=== PATIENT | female | born 1960 | race Caucasian/White ===

== ENCOUNTER 2017-10-04 23:21 | Emergency (ER) | payer BC ==
[2017-10-04] MEDS ORDERED: Ketorolac 60 MG/2 ML SDV IM ONE (23:37)
--- NOTE | 2017-10-04 23:43 | EDM.PDOC ---
ED HPI GENERAL MEDICAL PROBLEM - General Chief Complaint: Back Pain or Injury Stated Complaint: BACK AND HIP PAIN Time Seen by Provider: 10/04/17 23:25 Source of Information: Reports: Patient, Old Records History Limitations: Reports: No Limitations - History of Present Illness INITIAL COMMENTS - FREE TEXT/NARRATIVE: Xin comes to [facility] for pain management of chronic sacroiliitis and degenerative back disease. She has received steroid injections at the [facility], and next scheduled visit is October 25. She has Tramadol at home for pain, with musculoskeletal relaxants. She requests treatment and a note for employer. She is in recovery of chronic ETOH x 2 years. - Related Data Allergies Allergy/AdvReac Type Severity Reaction Status Date / Time codeine Allergy Nausea and Verified 07/26/15 19:18 Vomiting Penicillins Allergy Anaphylactic Verified 07/26/15 19:18 Shock venom-honey bee Allergy Anaphylactic Verified 07/26/15 19:18 [bee venom (honey bee)] Shock Home Meds: Home Meds . [Unable to Verify Home Med List] 07/26/15 [History] Past Medical History Musculoskeletal History: Reports: Back Pain, Chronic, Other (See Below) ( sacroiliitis) Psychiatric History: Reports: Other (See Below) (alcoholism) - Past Surgical History Other Musculoskeletal Surgeries/Procedures:: back surgery Social & Family History - Tobacco Use Smoking Status *Q: Current Every Day Smoker Years of Tobacco use: 40 Packs/Tins Daily: 1.5 - Recreational Drug Use Recreational Drug Use: No ED ROS GENERAL - Review of Systems Review Of Systems: ROS reveals no pertinent complaints other than HPI. ED EXAM,LOWER BACK PAIN/INJURY - Physical Exam Exam: See Below Exam Limited By: No Limitations General Appearance: Alert, WD/WN, Moderate Distress Eye Exam: Bilateral Eye: EOMI, Normal Inspection, PERRL Ears: Normal External Exam Nose: Normal Inspection Throat/Mouth: Normal Inspection, Normal Oropharynx Head: Normocephalic Neck: Normal Inspection, Supple Respiratory/Chest: Lungs Clear Cardiovascular: Regular Rate, Rhythm Back Exam: Decreased Range of Motion, Vertebral Tenderness, Other (SI joints tender L>R to maneuver) Extremities: Normal Inspection, Normal Range of Motion, Non-Tender Neurological: Alert, Normal Mood/Affect, Normal Dorsiflexion, Normal Plantar Flexion, Normal Reflexes, No Motor/Sensory Deficits, Oriented x 3 Psychiatric: Normal Affect, Normal Mood Skin Exam: Warm, Dry Lymphatic: No Adenopathy Course - Vital Signs Text/Narrative:: Following assessment at the [facility], I administered Toradol 60 mg IM. She was given a note for employer. - Orders/Labs/Meds Orders: Active Orders 24 hr Category Date Time Status Ketorolac [Toradol] Med 10/04/17 23:37 Once 60 mg IM ONETIME ONE Departure - Departure Time of Disposition: 23:42 Disposition: Home, Self-Care 01 Condition: Fair Clinical Impression: Sacroiliitis Chronic back pain Qualifiers: Back pain location: low back pain Back pain laterality: bilateral Sciatica presence: without sciatica Qualified Code(s): M54.5 - Low back pain; G89.29 - Other chronic pain; G89.29 - Other chronic pain - Discharge Information Referrals: Cookie Gay EMPLOYEE RELATION MANAGER [Primary Care Provider] - Forms: ED Department Discharge - Problem List & Annotations (1) Sacroiliitis SNOMED Code(s): 20686844 Code(s): M46.1 - SACROILIITIS, NOT ELSEWHERE CLASSIFIED Status: Acute Annotation/Comment:: Xin will resume maintenance meds in the am. She will be on medical leave from employer until seen by Pain Clinic or cleared by PCP. (2) Chronic back pain SNOMED Code(s): 163490406 Code(s): M54.9 - DORSALGIA, UNSPECIFIED; G89.29 - OTHER CHRONIC PAIN Status : Acute Qualifiers: Back pain location: low back pain Back pain laterality: bilateral Sciatica presence: without sciatica Qualified Code(s): M54.5 - Low back pain; G89.29 - Other chronic pain; G89.29 - Other chronic pain - Problem List Review Problem List Initiated/Reviewed/Updated: Yes - My Orders Last 24 Hours: My Active Orders 10/04/17 23:37 Ketorolac [Toradol] 60 mg IM ONETIME ONE - Assessment/Plan Last 24 Hours: My Active Orders 10/04/17 23:37 Ketorolac [Toradol] 60 mg IM ONETIME ONE Plan: Follow up with PCP.
[2017-10-05 03:45] VITALS: BP 127/70
== END 2017-10-04 23:55 | disposition home or self-care (01) ==
LOC: FB.ED 23:21
DX: M46.1 Sacroiliitis, not elsewhere classified (principal); G89.29 Other chronic pain; F17.210 Nicotine dependence, cigarettes, uncomplicated; Z98.890 Other specified postprocedural states; Z88.0 Allergy status to penicillin; Z88.5 Allergy status to narcotic agent; Z91.030 Bee allergy status
CPT/HCPCS: 96374; 99282; J1885; 96372

== ENCOUNTER 2019-05-11 19:02 | Emergency (ER) | payer BC, OTHER ==
--- NOTE | 2019-05-11 19:08 | EDM.PDOC ---
ED HPI GENERAL MEDICAL PROBLEM - General Stated Complaint: rash Time Seen by Provider: 05/11/19 19:02 Source of Information: Reports: Patient, Family (girlfriend) History Limitations: Reports: No Limitations - History of Present Illness INITIAL COMMENTS - FREE TEXT/NARRATIVE: 59 y.o.w.f was transferred from to the ed because of a gen rash on day after taking BactrimDS for a UTI. Pt had gen itching and a Urticarial rash. No SOB. Pt noticed a gen edema as well. No N/V/D no SOB or chest pain. No other acute med Issues. BP 147/70 RR 18 Pulse ox 97% on RA Pulse 81 Temp 36.7 as per nurse (verbal) Onset Date: 05/11/19 Onset Time: 16:00 Duration: Hour(s): Location: Reports: Generalized Quality: Reports: Dull Severity: Mild Improves with: Reports: Rest Worsens with: Reports: Movement Context: Reports: Other (after taking Bactrim Abx) Associated Symptoms: Reports: No Other Symptoms Generalized Pain Score (Numeric/FACES): 8 - Related Data Allergies Allergy/AdvReac Type Severity Reaction Status Date / Time codeine Allergy Nausea and Verified 10/05/17 03:15 Vomiting Penicillins Allergy Anaphylactic Verified 10/05/17 03:15 Shock Zltjlkb-Tou-Gwd Reductase Allergy Cannot Verified 10/05/17 03:15 Inhibitor Remember venom-honey bee Allergy Anaphylactic Verified 10/05/17 03:15 [bee venom (honey bee)] Shock Home Meds: Home Meds Acetaminophen [Tylenol Extra Strength] 500 mg PO 10/05/17 [History] Aspirin [Halfprin] 81 mg PO DAILY 10/05/17 [History] Baclofen 10 mg PO TID 10/05/17 [History] Benzonatate 200 mg PO TID PRN 10/05/17 [History] Calcium Carb/Mag Ox/Zinc Gluc [Dchrpxj-Sqpqayfwy-Dnlw] 1 each PO DAILY 10/05/17 [History] Cetirizine [ZyrTEC] 10 mg PO DAILY 10/05/17 [History] Cholecalciferol (Vitamin D3) [Vitamin D3] 2,000 unit PO 10/05/17 [History] Clarithromycin [Biaxin] 500 mg PO BID 10/05/17 [History] DULoxetine [Cymbalta] 60 mg PO DAILY 10/05/17 [History] Diclofenac Sodium [Voltaren] 75 mg PO BIDMEALS 10/05/17 [History] Doxycycline Hyclate 100 mg PO BID 10/05/17 [History] Gabapentin [Neurontin] 600 mg PO TID 10/05/17 [History] Glucosamine HCl/Chondr Guevara A Na [Glucosamine-Chondroitin Liq] 30 ml PO DAILY [History] Levothyroxine [Sythroid] 75 mcg PO DAILY 10/05/17 [History] Rosuvastatin [Crestor] 10 mg PO BEDTIME 10/05/17 [History] Ubidecarenone [Coenzyme Q10] 100 mg PO DAILY 10/05/17 [History] traMADol [Ultram] 50 mg PO Q6H PRN 10/05/17 [History] traZODone 25 mg PO BEDTIME 10/05/17 [History] Ciprofloxacin HCl [Cipro] 500 mg PO BID #20 tablet 05/11/19 [Rx] hydrOXYzine pamoate [Vistaril] 50 mg PO Q6H PRN #12 cap 05/11/19 [Rx] predniSONE [Prednisone] 20 mg PO DAILY #4 tablet 05/11/19 [Rx] Past Medical History Cardiovascular History: Reports: High Cholesterol Musculoskeletal History: Reports: Back Pain, Chronic, Other (See Below) ( sacroiliitis) Other Musculoskeletal History: pain sacroiliac joint Psychiatric History: Reports: Other (See Below) (alcoholism) Endocrine/Metabolic History: Reports: Hypothyroidism - Past Surgical History Other Musculoskeletal Surgeries/Procedures:: back surgery Social & Family History - Caffeine Use Caffeine Use: Reports: Coffee ED ROS GENERAL - Review of Systems Review Of Systems: See Below Constitutional: Reports: No Symptoms HEENT: Reports: No Symptoms Respiratory: Reports: No Symptoms Cardiovascular: Reports: No Symptoms Endocrine: Reports: No Symptoms GI/Abdominal: Reports: No Symptoms : Reports: No Symptoms Musculoskeletal: Reports: No Symptoms Skin: Reports: Rash (generalized) Neurological: Reports: No Symptoms Psychiatric: Reports: No Symptoms Hematologic/Lymphatic: Reports: No Symptoms Immunologic: Reports: No Symptoms ED EXAM, SKIN/RASH Exam: See Below Exam Limited By: No Limitations General Appearance: Alert, WD/WN, Mild Distress Eye Exam: Bilateral Eye: Normal Inspection Ears: Normal External Exam Nose: Normal Inspection, Normal Mucosa, No Blood Throat/Mouth: Normal Inspection, Normal Lips, Normal Voice, No Airway Compromise Head: Atraumatic, Normocephalic Neck: Normal Inspection, Supple, Non-Tender, Full Range of Motion Respiratory/Chest: No Respiratory Distress, Lungs Clear, Normal Breath Sounds, Chest Non-Tender Cardiovascular: Normal Peripheral Pulses, Regular Rate, Rhythm, No Edema, No Rub Peripheral Pulses: 1+: Brachial (R) GI/Abdominal: Normal Bowel Sounds, Soft, Non-Tender, No Organomegaly, Pelvis Stable (Female) Exam: Deferred Rectal (Female) Exam: Deferred Back Exam: Normal Inspection, Full Range of Motion Extremities: Normal Inspection, Normal Range of Motion, Non-Tender Neurological: Alert, Oriented, CN II-XII Intact, Normal Cognition Psychiatric: Normal Affect, Normal Mood Skin: Warm, Dry, Petechiae (old), Rash (urticaria) Location, Skin: Generalized Characteristics: Urticarial Lymphatic: No Adenopathy Course - Vital Signs Text/Narrative:: 59 y.o.w.f was transferred from to the ed because of a gen rash on day after taking BactrimDS for a UTI. Pt had gen itching and a Urticarial rash. No SOB. Pt noticed a gen edema as well. No N/V/D no SOB or chest pain. No other acute med Issues. BP 147/70 RR 18 Pulse ox 97% on RA Pulse 81 Temp 36.7 as per nurse (verbal) PE: WNWD W F wit a urticarial rash Impression: Urticaria rash due to Allergy to Bactrim Tx: Visteril, Solu Medrol Reexam: Improved Plans: D/C with instructions Last Recorded V/S: Last Vital Signs Temp Pulse 91 05/11/19 20:28 Resp 18 05/11/19 20:28 BP 147/70 H 05/11/19 20:28 Pulse Ox 97 05/11/19 20:28 - Orders/Labs/Meds Meds: Medications Discontinued Medications Generic Name Dose Route Start Last Admin Trade Name Freq PRN Reason Stop Dose Admin Hydroxyzine HCl 50 mg 05/11/19 19:14 05/11/19 19:37 Vistaril IM 05/11/19 19:15 50 mg ONETIME ONE Administration Methylprednisolone Sodium Succinate 125 mg 05/11/19 19:14 07/26/19 19:38 Solu-Medrol IM 05/11/19 19:15 125 mg ONETIME ONE Administration Departure - Departure Time of Disposition: 20:19 Disposition: Home, Self-Care 01 Condition: Good Clinical Impression: Urticaria due to drug allergy - Discharge Information Prescriptions: Ciprofloxacin HCl [Cipro] 500 mg PO BID #20 tablet hydrOXYzine pamoate [Vistaril] 50 mg PO Q6H PRN #12 cap PRN Reason: itch swelling predniSONE [Prednisone] 20 mg PO DAILY #4 tablet Instructions: Drug Allergy, [id number] Referrals: Cookie Gay CREATIVE ENGAGEMENT DIRECTOR [Primary Care Provider] - Forms: ED Return to Work/School Form Additional Instructions: Please take Vistaril and prednisone as recommended, please follow up as needed, come back if your symptoms get worse acutely
[2019-05-11] MEDS ORDERED: methylPREDNISolone Sodium Succinate 125 MG/2 ML SDV IM ONE (19:14)
[2019-05-11] MEDS ORDERED: hydrOXYzine HCl 50 MG/ML SDV IM ONE (19:14)
[2019-05-11 21:13] VITALS: BP 147/70; PULSE 91
== END 2019-05-11 20:41 | disposition home or self-care (01) ==
LOC: FB.ED 19:02
DX: L50.0 Allergic urticaria (principal); T36.8X5A Adverse effect of other systemic antibiotics, initial encounter; E03.9 Hypothyroidism, unspecified; Z88.0 Allergy status to penicillin; Z88.5 Allergy status to narcotic agent; Z91.030 Bee allergy status; Z79.82 Long term (current) use of aspirin; Z79.899 Other long term (current) drug therapy
CPT/HCPCS: 96372; 99283; J2930; J3410